=== PATIENT | male | born 1960 | race Caucasian/White ===

== ENCOUNTER 2022-06-03 03:21 | Emergency (ER) | payer BC ==
[2022-06-03] MEDS ORDERED: Aspirin 81 MG Tab.Chew PO ONE (04:05)
[2022-06-03] MEDS ORDERED: Heparin Sodium 5,000 Units/ML Vial IVPUSH ONE (05:18)
[2022-06-03] MEDS ORDERED: Heparin Sodium 1,000 Units/ML 10 ML MDV SUBCUT ONE (05:21)
[2022-06-03] MEDS ORDERED: Heparin Sodium/D5W 25,000 UNITS/500 ML BAG IV SCH (05:30)
[2022-06-03] MEDS ORDERED: Ciprofloxacin 500 MG Tab PO ONE ×2 (07:46→08:00)
[2022-06-03] MEDS: metroNIDAZOLE 500 MG Tab PO ONE ×2 (07:58→07:59)
[2022-06-03] MEDS ORDERED: metroNIDAZOLE 500 MG Tab PO ONE (08:00)
[2022-06-03] MEDS ORDERED: metroNIDAZOLE 500 MG Tab ONE ×2 (08:06→08:07)
[2022-06-03] MEDS ORDERED: fentaNYL 100 MCG/2 ML SDV IVPUSH PRN (08:45)
[2022-06-03] MEDS ORDERED: Ondansetron 4 MG/2 ML SDV IVPUSH ONE (08:45)
[2022-06-03] MEDS ORDERED: Ondansetron 4 MG Tab.DIS PO ONE (08:50)
[2022-06-03] MEDS ORDERED: Ondansetron 4 MG/2 ML SDV ONE (09:06)
[2022-06-03] MEDS ORDERED: fentaNYL 100 MCG/2 ML SDV ONE (09:06)
== END 2022-06-03 09:33 ==
LOC: LB.ED 03:21
DX: I21.3 ST elevation (STEMI) myocardial infarction of unspecified site (principal); E78.00 Pure hypercholesterolemia, unspecified; I10 Essential (primary) hypertension; F17.210 Nicotine dependence, cigarettes, uncomplicated; E66.9 Obesity, unspecified; Z68.43 Body mass index [BMI] 50.0-59.9, adult; Z88.0 Allergy status to penicillin; Z79.899 Other long term (current) drug therapy; Z20.822 Contact with and (suspected) exposure to COVID-19
CPT/HCPCS: 36415; 71250; 74176; 80053; 81001; 84484; 85025; 85379; 85610; 85730; 93005; 96372; 96374; 96375; 99285-25; A0425; A0429; A9270-GY; J1644; J2405; J3010; Q0162; U0002